=== PATIENT | male | born 1965 | race Caucasian/White ===

== ENCOUNTER → 2018-10-01 | Day surgery (SDC) | payer BC ==
[2018-09-26 12:42] VITALS: BMI 32.0
[~2018-10-01] MED LIST: LACTATED RINGERS 1,000 ML IV SCH; PROPOFOL 10 MG/ML 20 ML VIAL IV ONE
[2018-10-01 11:09] VITALS: RESP 16; TEMP 97.4
--- NOTE | 2018-10-01 11:36 | P.GSHP ---
History of Present Illness H&P Date: 10/01/18 Chief Complaint: GI bleed, hemorrhoids This a 53-year-old male referred from Dr. Simmons. Patient presents today for colonoscopy. He's had issues with rectal bleeding and hemorrhoids. Past Medical History Past Medical History: Hyperlipidemia, Osteoarthritis (OA), Sleep Apnea/CPAP/ BIPAP Additional Past Medical History / Comment(s): C-PAP MACHINE, BLEEDING HEMORRHOID., SLIGHT BLACKFEET. History of Any Multi-Drug Resistant Organisms: None Reported Past Surgical History: Orthopedic Surgery, Tonsillectomy Additional Past Surgical History / Comment(s): missael myringotomy, ORIF rt hand, ARTHROSCOPY RIGHT KNEE, RIGHT ROTATOR CUFF. Past Anesthesia/Blood Transfusion Reactions: No Reported Reaction Past Psychological History: Depression Additional Psychological History / Comment(s): STATES PAST HX, NOTHING CURRENT Smoking Status: Former smoker Past Alcohol Use History: Occasional Additional Past Alcohol Use History / Comment(s): QUIT SMOKING 08/04/2011., SMOKED 1- 1 1/2 PPD FOR 33 YEARS. Past Drug Use History: Marijuana Additional Drug Use History / Comment(s): CURRENT MARIJUANA USE. - Past Family History Father Family Medical History: Cancer Additional Family Medical History / Comment(s): MELANOMA Mother Family Medical History: No Reported History Medications and Allergies Home Medications Medication Instructions Recorded Confirmed Type Hydrocodone/Acetaminophen [[place] 1 tab PO DIRECTED PRN 08/31/15 10/01/18 History 7.5-325] Cholecalciferol [Vitamin D3] 500 unit PO DAILY 09/26/18 09/26/18 History Milk Thistle 150 mg PO DAILY 09/26/18 09/26/18 History Multivitamin [Men's Multi-Vitamin] 1 each PO DAILY 09/26/18 09/26/18 History Rosuvastatin [Crestor] 10 mg PO DAILY 09/26/18 10/01/18 History Allergies Allergy/AdvReac Type Severity Reaction Status Date / Time No Known Allergies Allergy Verified 10/01/18 11:12 Surgical - Exam Vital Signs Temp Pulse Resp BP Pulse Ox 97.4 F L 70 16 138/80 96 10/01/18 11:09 10/01/18 11:09 10/01/18 11:09 10/01/18 11:09 10/01/18 11:09 - General well developed, no distress - Eyes PERRL - ENT normal pinna - Neck no masses - Respiratory normal expansion - Cardiovascular Rhythm: regular - Abdomen Abdomen: soft, non tender Assessment and Plan Assessment: GI bleed. We'll perform colonoscopy.
--- NOTE | 2018-10-01 11:50 | P.OP ---
Date of Procedure: 10/01/18 Preoperative Diagnosis: GI bleed Hemorrhoids Postoperative Diagnosis: External hemorrhoids Hepatic flexure mass suspicious for colon cancer biopsy pending Procedure(s) Performed: Colonoscopy Anesthesia: MAC Surgeon: Derek Shah Estimated Blood Loss (ml): 5 Pathology: other (Hepatic flexure) Condition: stable Disposition: PACU Description of Procedure: The patient's placed on the endoscopy table in the lateral position. He received IV sedation. Digital rectal exam was performed which revealed internal and external hemorrhoids. Patient had a large external hemorrhoid in the left lateral position. The flexible colonoscope was then placed patient anus passed throughout the entire colon. The ileocecal valve sutures. The cecum appeared normal. The right colon. Normal. At the level hepatic flexure there was a colonic mass. The mass occupied approximately 50% of the lumen of the colon. The mass was biopsied. It appeared to be friable. It had a suspicious look of colon cancer. Scope was withdrawn remainder of the transverse colon, and descending colon appeared normal. In the sigmoid colon was a few scattered diverticula. Scope was then brought back the rectum and this appeared normal. Scope was withdrawn for patient.
[2018-10-01 12:13] VITALS: BP 126/88; PULSE 75
== END | disposition home or self-care (01) ==
LOC: ORWHC2ENDO 10:31
PROVIDERS: ATTEND Surgery
DX: K63.3 Ulcer of intestine (principal); K64.8 Other hemorrhoids; E78.5 Hyperlipidemia, unspecified; K64.4 Residual hemorrhoidal skin tags; K57.30 Diverticulosis of large intestine without perforation or abscess without bleeding; M19.90 Unspecified osteoarthritis, unspecified site; Z87.891 Personal history of nicotine dependence; G47.30 Sleep apnea, unspecified; Z99.89 Dependence on other enabling machines and devices; F32.9 Major depressive disorder, single episode, unspecified; Z79.899 Other long term (current) drug therapy
CPT/HCPCS: 88305; 45380; J2704; 45381